=== PATIENT | female | born 1940 | race Caucasian/White ===

== ENCOUNTER 2018-07-20 22:12 | Emergency (ER) | payer OTHER ==
[~2018-07-20] VITALS: Ht 162.6 cm; Wt 98.0 kg
[2018-07-20 22:18] VITALS: Ht 162.6 cm; Wt 98.0 kg
--- NOTE | 2018-07-20 22:28 | ERD ---
ER Documentation Chief Complaint Chief Complaint MESSI, FROM [facility], FELL THIS AM; DENIES SYNCOPE; NECK PAIN HPI This is a 78-year-old female presents for evaluation of a mechanical fall, she was brought in from [facility], she complains of posterior neck pain and a headache, also right toe pain. She denies any numbness or tingling, she had no syncope or near syncope, she takes aspirin, no weakness. Otherwise she has no other pain. ROS All systems reviewed and are negative except as per history of present illness. Allergies Allergies: Coded Allergies: Penicillins (Verified Allergy, Unknown, 07/21/18) Sulfa (Sulfonamide Antibiotics) (Verified Allergy, Unknown, 07/21/18) Physical Exam Vitals Vital Signs Date Temp Pulse Resp B/P (MAP) Pulse Ox O2 O2 Flow FiO2 Time Delivery Rate 07/20/18 98.7 62 20 192/86 99 22:18 (121) Physical Exam Const: Well-appearing nontoxic Head: Head is atraumatic, there are no scalp hematomas, midface is stable Eyes: Normal Conjunctiva ENT: Normal External Ears, Nose and Mouth. Neck: Full range of motion. No meningismus. Resp: Clear to auscultation bilaterally, no wheezes rales rhonchi Cardio: Regular rate and rhythm, no murmurs Abd: Soft, non tender, non distended. Normal bowel sounds Skin: No petechiae or rashes Back: No midline or flank tenderness Ext: No cyanosis, or edema. There is full range of motion of all extremities, strength 5 out of 5, there is tenderness over the right great toe distally, no abrasions or lacerations. Neur: Awake and alert, cranial nerves II through XII intact, strength 5 out of 5 bilaterally Psych: Normal Mood and Affect Results 24 hrs Current Medications Medications Dose Sig/Rahul Start Time Status Last (Trade) Ordered Route PRN Stop Time Admin Dose Reason Admin 1,000 mg ONCE ONCE 07/20/18 DC 07/20/18 Acetaminophen PO 22:30 22:26 (Tylenol 07/20/18 22:31 Tab) Morphine 2 mg ONCE ONCE 07/21/18 DC Sulfate IV 00:06 (morphine) 07/21/18 00:07 Ondansetron 4 mg ONCE ONCE 07/21/18 DC HCl (Zofran IV 00:07 Inj) 07/21/18 00:08 Labetalol 10 mg ONCE ONCE 07/21/18 DC HCl IV 00:00 (Labetalol) 07/21/18 00:01 [place] [address] Radiology Main Line: [phone] DIAGNOSTIC IMAGING REPORT Patient: RICHAR BARROW : 1940 Age: 78 Sex: F MR #: [id number] DOS: 07/20/182223 Ordering MD: LUIS FELIPE CISNEROS MD Location: E/R Room/Bed: PROCEDURE: XR Toe. CLINICAL INDICATION: 78-year of age, female. Pain. Trauma. TECHNIQUE: Three views of the right fifth toe. COMPARISON: None available. FINDINGS: There is an acute minimally displaced transverse fracture through the proximal shaft of the proximal phalanx of the fifth toe that does not involve the articular surface. Joints are anatomically aligned. There is moderate to severe soft tissue swelling over the dorsum of the foot. No radiopaque foreign body is identified. Additional comment: Moderate bone spur at the base of the calcaneus. IMPRESSION: Acute extra-articular fracture through the proximal shaft of the proximal phalanx of the fifth toe with extensive soft tissue swelling as described. RPTAT: HCTS Physician Ed Date Time Electronically viewed and signed by Maggie Tanner Physician on 07/20/2018 23:27 CS/ CC: LUIS FELIPE CISNEROS MD [id number] [place] [id number] Radiology Main Line: [phone] DIAGNOSTIC IMAGING REPORT Patient: RICHAR BARROW : 1940 Age: 78 Sex: F MR #: [id number] DOS: 07/20/182212 Ordering MD: LUIS FELIPE CISNEROS MD Location: E/R Room/Bed: PROCEDURE: CT HEAD WITHOUT CONTRAST CLINICAL INDICATION: 78 years of age, female. Trauma TECHNIQUE: CT of the head was performed without IV contrast. Coronal and sagittal reformatted images were obtained from the axial source images. Images were reviewed on a high-resolution PACS workstation. DICOM images are available. Dose information: The estimated radiation dose (CTDIvol mGy) for each series in this exam is 40. The estimated cumulative dose (DLP mGy-cm) is 634. One or more of the following dose reduction techniques were used: - Automated exposure control. - Adjustment of the mA and/or kV according to patient size. - Use of iterative reconstruction technique. COMPARISON: None available. FINDINGS: BRAIN PARENCHYMA: Negative for evidence of acute intraparenchymal hemorrhage, mass effect or large territory infarct. There are patchy low density changes in the supratentorial deep white matter that are nonspecific but likely due to chronic small vessel ischemia. Drake- white matter differentiation is otherwise maintained. Moderate diffuse cerebral tissue loss. VENTRICLES AND EXTRA-AXIAL SPACES: There is prominence of the ventricles somewhat disproportionate to the sulci that may be due to preferential central cerebral tissue loss or normal pressure hydrocephalus. Midline is central. Basal cisterns are normal. No abnormal extra-axial fluid collections are identified. Negative for evidence of acute subarachnoid or extra-axial hemorrhage. VASCULATURE: Negative for significant intracranial atherosclerosis. VISUALIZED PARANASAL SINUSES AND MASTOID AIR CELLS: Visualized paranasal sinuses: Clear where visualized. Mastoid air cells: Clear. BONES: No focal abnormality. SCALP: No significant abnormality. Additional comment: Bilateral cataract surgery. IMPRESSION: 1. Negative for evidence of acute intracranial injury. Negative for evidence of acute intracranial hemorrhage or mass effect. 2. Patchy low density changes in the supratentorial deep white matter are nonspecific but likely due to chronic small vessel ischemia. 3. Prominence of the ventricles disproportionate to the sulci may be due to preferential central cerebral tissue loss or normal pressure hydrocephalus. RPTAT: HCTS Physician Ed Date Time Electronically viewed and signed by Physician Ed on 07/20/2018 23:25 CS/ CC: LUIS FELIPE CISNEROS MD [phone] [place] [address] Radiology Main Line: [phone] DIAGNOSTIC IMAGING REPORT Patient: RICHAR BARROW : 1940 Age: 78 Sex: F MR #: [id number] DOS: 07/20/18 2213 Ordering MD: LUIS FELIPE CISNEROS MD Location: E/R Room/Bed: PROCEDURE: CT CERVICAL SPINE WITHOUT CONTRAST CLINICAL INDICATION: 78-year of age, female. Pain. Trauma. TECHNIQUE: A CT of the cervical spine was performed utilizing thin section axial images from the skull base through the thoracic inlet. Coronal and sagittal reformatted images were obtained from the axial source images. Images were reviewed on a high-resolution PACS workstation. DICOM images are available. The CTDIvol is 22 mGy and the DLP is 573 mGy-cm. One or more of the following dose reduction techniques were used: - Automated exposure control. - Adjustment of the mA and/or kV according to patient size. - Use of iterative reconstruction technique. COMPARISON: None available. FINDINGS: Cervical spine is imaged from the skull base to T4. ALIGNMENT: Normal. VERTEBRAE, DISKS AND FACETS: Vertebral bodies and posterior elements are intact without acute fracture. Bones are osteopenic. No suspicious bone lesions. There is multilevel advanced degenerative disc disease throughout the lower cervical spine with disc space narrowing and endplate osteophytes at all levels. 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 There is multilevel bilateral facet joint arthritis with bony hypertrophy and there is fusion of the left C3-4 facet joints. There is multilevel central canal stenosis and severe bilateral intervertebral foraminal stenosis with potential nerve root compression. There are bulky anterior osteophytes with bony bridging in the lower cervical spine and upper thoracic spine in keeping with DISH. EXTRAVERTEBRAL SOFT TISSUES: No significant abnormality. IMAGED BRAIN: Unremarkable. IMAGED SOFT TISSUES AND LUNG APICES: No significant abnormality. Additional comment: None. IMPRESSION: 1. Negative for evidence of acute fracture or traumatic subluxation of cervical spine. 2. Osteopenia and multilevel degenerative changes with multilevel stenosis with potential nerve root compression as described. RPTAT: HCTS Physician Ed Date Time Electronically viewed and signed by Maggie Tanner Physician on 07/20/2018 23:36 CS/ CC: LUIS FELIPE CISNEROS MD [phone] Procedures/MDM This is a 78-year-old female who presents for evaluation of a mechanical fall. Fall happened earlier today, she is on aspirin, but otherwise not on blood thinners, her only major complaint was a headache as well as pain to her right 5th toe, her x-ray revealed a distal tuft fracture, she was provided a supportive shoe. CT brain and C-spine were negative for acute injuries, patient was noted to be hypertensive, she had no evidence of encephalopathy, no evidence of hypertensive emergency. Discussed findings with patient who felt comfortable with discharge plan of care, at discharge she was in no distress. Departure Diagnosis: Primary Impression: Neck pain Additional Impressions: Head trauma Encounter type: initial encounter Qualified Codes: S09.90XA - Unspecified injury of head, initial encounter Accident due to mechanical fall without injury Encounter type: initial encounter Qualified Codes: W19.XXXA - Unspecified fall, initial encounter Condition: Stable LUIS FELIPE CISNEROS MD July 20, 2018 22:28
[2018-07-20] MEDS ORDERED: ACETAMINOPHEN 500 MG TAB PO ONE (22:30)
[2018-07-21] MEDS ORDERED: LABETALOL HCL 20MG INJ IV ONE
[2018-07-21] MEDS ORDERED: morphine 2 MG INJ IV ONE (00:06)
[2018-07-21] MEDS ORDERED: ONDANSETRON 4 MG INJ IV ONE (00:07)
[2018-07-21] MEDS ORDERED: hydrALAzine 20 MG INJ ONE (00:34)
[2018-07-21 00:59] VITALS: BP 160/65; PULSE 70; RESP 20
[2018-07-21] MEDS ORDERED: hydrALAzine 20 MG INJ IV ONE (01:00)
== END 2018-07-21 01:00 | disposition home or self-care (01) ==
LOC: E/R 22:12
DX: S09.90XA Unspecified injury of head, initial encounter (principal); S19.9XXA Unspecified injury of neck, initial encounter; R51 Headache; W18.39XA Other fall on same level, initial encounter
CPT/HCPCS: 70450; 72125; 73660; 96374; 99285; J0360